=== PATIENT | male | born 1960 | race Caucasian/White ===

== ENCOUNTER 2024-08-16 18:33 | Emergency (ER) | payer BC, SELFPAY ==
[2024-08-16 18:36] VITALS: BP 185/98
--- NOTE | 2024-08-16 19:22 | ED.GENMED ---
History of Present Illness
General
Chief Complaint: Headache
Source: patient
Exam Limitations: none
Time Seen by Provider: 08/16/24 18:54
History of Present Illness
History of Present Illness:
This is a 64 year old male that comes in with c/o dizziness and temporal pain. States that he has had pain in the left temporal area on and off but tonight it was worse. States that he is dizzy and felt like he was going to fall. States that he
went to see the PCP on Monday and he was place on BP medication as his BP was 174/98 and 155/101 at home. States that he has not started this yet as he was going to pick this up tomorrow. Denies any fever, chills, chest pain, SOB, abd pain, nausea,
vomiting, diarrhea, urinary burning.
Past History
Past History
ED Past Medical History: Asthma, GERD and HTN; Negative NIDDM
ED Past Surgical History: Tonsilectomy
Social History
Tobacco: Non-smoker
Alcohol: None
Personal: Single
Living: alone
Employment: Employed
Family History
Family History: Negative Early CAD or CAD
Review of Systems
Review of Systems
All Other Systems: ROS reviewed and negative except as documented in HPI and ROS
Constitutional: Reports no symptoms; Denies fever or chills
EENT: Reports no symptoms
Respiratory: Reports no symptoms; Denies cough or trouble breathing
Cardiac: Reports no symptoms; Denies chest pain
ABD/GI: Reports no symptoms; Denies abdominal pain, nausea, vomiting or diarrhea
: Denies dysuria, frequency or urgency
Musculoskeletal: Reports no symptoms
Skin: Reports no symptoms
Neurological: Reports dizzy and headache
Psychiatric: Reports no symptoms
Phy Exam
General Physical Exam
General Presentation: mild distress
General age: appears stated age
General Skin: warm and dry
General Habitus: normal
General Mental: alert
General Hydration: appears well hydrated
ENT Exam
ENT Exam: TM's normal, pharynx normal and neck supple
Eye Exam
Eye Exam: EOMI
Cardiovascular Exam
Cardiovascular Exam: regular rate/rhythm, no edema, no murmur and normal peripheral pulses
Pulmonary Exam
Pulmonary Exam: lungs clear, no respiratory distress, no rales, chest non tender, no crackles, no rhonchi, no wheezing and no cough
Gastrointestinal Exam
Gastrointestinal Exam: normal bowel sounds, non tender, soft, no organomegaly, no pulsatile mass and non distended
Musculoskeletal Exam
Musculoskeletal Exam: full ROM and no edema
Skin Exam
Skin Exam: normal color, warm/dry, no rash and no petechia
Psychiatric Exam
Psychiatric Exam: normal mood/affect
Course
Orders/Labs/Results
Orders:
Orders
08/16/24 18:38
EKG [Electrocardiogram (*1)] Urgent
Reason for Study: Palpitations
EKG- Treatment ONCE
08/16/24 19:21
CT Head W/o Iv Contrast Urgent
Comment:
Reason For Exam: headache pain left temporal area, dizziness.
0.9% Sodium Chloride 1000 ml [Nss] 1,000 ml IV BOLUS
Acetaminophen [Tylenol] 1,000 mg PO NOW STA
Dexamethasone Sod Phosphate [Decadron] 20 mg IV NOW STA
Ketorolac [Toradol] 30 mg IV NOW STA
08/16/24 20:09
CRP [C-Reactive Protein] Urgent
Complete Blood Count/With Diff Urgent
Comprehensive Metabolic Panel Urgent
Sed Rate [Erythrocyte Sed Rate] Urgent
Abnormal Lab Results
08/16/24
20:09
BUN 25 H mg/dl
(9-20)
08/16/24 20:09
08/16/24 20:09
Dehydration. OTherwise labs normal. Sed rate normal at 8, CRP normal at <5.0
Vital Signs
Initial and Last Documented VS:
Initial Vital Signs
Temp Pulse Resp BP Pulse Ox
98.3 F 81 16 185/98 98
08/16/24 18:36 08/16/24 18:36 08/16/24 18:36 08/16/24 18:36 08/16/24 18:36
Last Documented Vital Signs
Temp Pulse Resp BP Pulse Ox
98.3 F 63 18 147/102 98
08/16/24 18:36 08/16/24 20:09 08/16/24 20:15 08/16/24 20:09 08/16/24 20:09
MDM/Problems Addressed
Differential Diagnosis Includes:
Temporal arteritis, Migraines, Hypertension
MDM/Problems Addressed:
This is a 64 year old male that comes in with c/o left temporal area headache pain. States that this has been on and off with dizziness and that he saw his PCP on Monday. Patient was place on BP medication but has not started them or picked up the
Prescription. States that he was going to pick this up tomorrow. States that tonight he felt dizzy like he was going to fall and that he was dizzy.
Will check labs, CT head, Medication for headache pain and given IV fluids.
Back into see patient. Patient states that he is feeling better but he still has some pressure. There in the temporal area. Patient to follow up with the family doctor for recheck. Will place patient on steroid for the next 5 days. Patient can
alternate with Tylenol and Ibuprofen for pain. Patient to return with any concerns.
Chronic conditions affecting care:
NA
Acute Exacerbation and/or Progression of Chronic Illness:
NA
*Radiology
Radiology exam reviewed: radiology read reviewed (CT head-No acute intracranial abnormality noted. )
*Pulse Oximetry
Patient hypoxic: no
*EKG
Interpreted by ED Provider?: Yes
Heart Rate: 74
Rate: normal
Rhythm: sinus
[place]: normal axis
Interval: normal interval
QRS Pattern: normal QRS
Ischemia: no ischemia
*Golf [employer] Cover Treater Interpretation
Rate: normal
Heart Rate: 77
Rhythm: sinus
*Critical Care Note
Total Time (30-74mins, 75-104mins- exclusive of procedures): Not Applicable
ED Attending Note
-
Portions of this chart may have been created with voice recognition software.� Occasional wrong word or��sound alike� substitutions may have occurred due to the inherent limitations of voice recognition software.
Discharge Plan
Departure
Patient Disposition: Home (Routine Discharge)
Date of Disposition: 08/16/24
Time of Disposition: 21:00
Patient with high blood pressure during this ER visit?: Yes
Condition: Good
Covid-19: Not Applicable
Discharge Problem:
Headache
Instructions: Headache, Adult (DC), BLOOD PRESSURE
Prescriptions:
New
prednisone 20 mg tablet
40 mg PO DAILY Qty: 10 0RF
Referrals:
Garcia Colbert MD [Family Provider] - Follow up in 5-7 days
Activity Restrictions/Additional Instructions:
As discussed, your blood work shows that you are dehydrated. Please increase your water intake to 8-8oz glasses daily. Your CT of the head is normal. You have been given IV steroids here and a prescription for steroid for the next 5 days. This will
help decrease any inflammation. You may also use Tylenol or Ibuprofen for pain. Follow up with the family doctor for further evaluation. IF YOU HAVE INCREASED HEADACHE PAIN, OR YOU HAVE ANY OTHER CONCERNS PLEAES RETURN TO THE EMERGENCY ROOM.
Interventions
Interventions:
*Risk Screen - Suicide Last Done: 08/16/24 18:36
*General Assessment Last Done: 08/16/24 18:36
*Neglect/Abuse Screening Last Done: 08/16/24 18:36
ED- Fall Risk Assessment Last Done: 08/16/24 20:17
*ED COVID-19 Vaccine History Last Done: 08/16/24 20:03
ED- Neurological Assessment Last Done: 08/16/24 20:16
Discharge Date and Time
Print Language: FRISIAN
[2024-08-16 20:02] VITALS: BMI 23.5
[2024-08-16 20:09] VITALS: BP 147/102
[2024-08-16] MEDS: TYLENOL 1000 MG PO (20:10)
[2024-08-16] MEDS: TORADOL 30 MG IV (20:10)
[2024-08-16] MEDS: NSS 1000 IV (20:11)
[2024-08-16] MEDS: DECADRON 20 MG IV (20:12)
[2024-08-16 20:24] LABS: % Basophils 0.7 % (0-2); % Eosinophils 3.7 % (0-6); % Immature Granulocytes 0.2 % (0-0.5); % Lymphocytes 30.4 % (20.5-51.1); % Monocytes 8.1 % (1.7-9.3); % Neutrophils 56.9 % (42.2-75.2); Absolute Eosinophils 0.2 10^3/uL (0-0.7); Absolute Lymphocytes 1.8 10^3/uL (1.2-3.4); Absolute Monocytes 0.5 10^3/uL (0.1-0.6); Absolute Neutrophils 3.4 10^3/uL (1.4-6.5); Hematocrit 42.1 % (39.0-52.0); Hemoglobin 14.6 g/dL (13.0-18.0); Mean Corp Hgb Conc. 34.7 g/dL (33.0-37.0); Mean Corpuscular Hgb 28.8 pg (27.0-31.0); Mean Platelet Volume 9.6 fL (7.4-10.4); Nucleated Red Blood Cells % 0 % (-); Platelet Count 224 10^3/uL (130-400); Red Blood Cell Count 5.07 10^6/uL (4.70-6.10); Red Cell Dist. Width 11.9 % (11.5-14.5)
[2024-08-16 20:41] LABS: ALT (SGPT) 25 U/L (0-50); AST (SGOT) 28 U/L (17-59); Albumin 4.6 g/dl (3.5-5.0); Alkaline Phosphatase 55 U/L (38-126); Blood Urea Nitrogen 25 mg/dl (9-20); Calcium 9.4 mg/dl (8.4-10.2); Carbon Dioxide 27 mmol/L (22-30); Chloride 101 mmol/L (98-107); Erythrocyte Sed Rate 8 mm/hour (0-20); Estimated Creatinine Clearance 91 ml/min; Glucose 93 mg/dl (70-99); Sodium 139 mmol/L (135-145); Total Bilirubin 0.6 mg/dl (0.2-1.3); Total Protein 6.9 g/dl (6.3-8.2); eGFR > 60.00
[2024-08-16 20:43] LABS: C-Reactive Protein < 5.00 mg/L (0.0-10.00)
[2024-08-16 21:00] VITALS: BP 147/94
[2024-08-16 21:18] VITALS: BP 150/98
== END 2024-08-16 21:32 | disposition home or self-care (01) ==
LOC: EMR 18:33
PROVIDERS: Clinical Nurse Specialist Family Health; EMERGENCY PHYSICIAN Emergency Medicine; FAMILY PHYSICIAN Internal Medicine
DX: R51.9 Headache, unspecified (principal); E86.0 Dehydration; I10 Essential (primary) hypertension; J45.909 Unspecified asthma, uncomplicated; K21.9 Gastro-esophageal reflux disease without esophagitis
CPT/HCPCS: 96374; 96375; 96361; 99284; 70450; 80053; 85025; 85652; 86140; 93005